=== PATIENT | female | born 1945 | race Hispanic/Latino ===

== ENCOUNTER 2024-06-29 06:15 | Day surgery (SDC) | payer OTHER ==
[2024-06-25 12:07] VITALS: BP 115/63; PULSE 81; RESP 18; TEMP 97.2
[2024-06-25 12:24] LABS: BASOPHILS # (AUTO) 0.04 K/uL (0.00-0.20); BASOPHILS % (AUTO) 0.4 % (0.0-5.0); EOSINOPHILS # (AUTO) 0.02 K/uL (0.00-0.70); EOSINOPHILS % (AUTO) 0.2 % (0.0-8.0); HEMATOCRIT 43.9 % (36-48); IMMATURE GRANULOCYTE ABSOLUTE 0.05 K/uL (0-1); LYMPHOCYTES # (AUTO) 1.4 K/uL (1.0-4.8); LYMPHOCYTES % (AUTO) 13.1 % (21.0-51.0); MEAN CORPUSCULAR HEMOGLOBIN 33.5 pg (27.0-33.0); MEAN CORPUSCULAR HGB CONC 33.5 g/dL (32.0-36.0); MONOCYTES # (AUTO) 0.8 K/uL (0.1-1.0); MONOCYTES % (AUTO) 7.7 % (3.0-13.0); NEUTROPHILS # (AUTO) 8.1 K/uL (1.8-7.7); NEUTROPHILS % (AUTO) 78.1 % (40.0-77.0); PLATELET COUNT (AUTO) 134 K/uL (130-400); RED BLOOD CELL COUNT(AUTO) 4.39 MIL/uL (4.00-5.50); RED CELL DISTRIBUTION WIDTH 12.2 % (11.0-15.5); WHITE BLOOD COUNT (AUTO) 10.4 K/uL (4.8-10.8)
[2024-06-25 12:35] LABS: CREATININE 1.2 mg/dL (0.5-1.0); INR 0.99 (0.85-1.15); POTASSIUM 3.7 mmol/L (3.5-5.1); PROTHROMBIN TIME 11.1 SEC (9.6-11.6)
[2024-06-25 12:36] LABS: PARTIAL THROMBOPLASTIN TIME 25.4 SEC (26.3-35.5)
[2024-06-25 12:43] LABS: B-TYPE NATRIURETIC PEPTIDE 18 pg/mL (0-100)
--- NOTE | 2024-06-25 13:34 | EKG ---
[facility] Test Date: 2024-06-25 Test Time: 12:57:02 Pat Name: Brett MILLARD Department: [facility] Room: Gender: F Digital Marketing Analyst: [id number] : 1945 Requested By: REJI LORA Order Number: [id number] Reading MD: Vinh Paula Measurements Intervals [place] Rate: 75 P: 58 MS: 189 QRS: 32 QRSD: 76 T: 28 QT: 369 QTc: 413 Interpretive Statements Sinus rhythm Compared to ECG 09/03/2022 12:24:34 No significant changes Electronically Signed On 06-25-2024 19:49:08 [employer]PA[employer] by Vinh Paula Please click the below link to view image of tracing.
[~2024-06-29] VITALS: Ht 160 cm; Wt 77.1 kg
[2024-06-29] VITALS (12 sets, daily range): BP systolic 134–173; BP diastolic 63–93; PULSE 59–74; RESP 13–17; TEMP 96.9–97.2
[~2024-06-29 06:15] MED LIST: AEC81 PO; AMOX1TAB15 PO; CHOL100020 PO; CHOL100046 PO; FOLI1 PO; METO-391 PO; PANT40TA54 PO; PREG100C PO; TRAM-543 PO; ZOLP5TAB8 PO
[2024-06-29] MEDS: 0.9%NACL 1000ML 1,000 ML IV SCH (07:20)
[2024-06-29] MEDS ORDERED: LIDOCAINE HCL 400MG/20ML VIAL ONE ×2 (08:29→09:26)
[2024-06-29] MEDS ORDERED: HEParin-NS 1,000 UNIT/500 ML 1,000 ML IV ONE (08:30)
[2024-06-29] MEDS ORDERED: HEParin 10,000 UNIT/10ML (1,000 UNIT/ML) VIAL ONE (08:30)
[2024-06-29] MEDS ORDERED: NITROGLYCERIN 50MG VIAL ONE (08:30)
[2024-06-29] MEDS ORDERED: IODIXANOL 320 MG/ML 100 ML VIAL ONE (08:36)
[2024-06-29] MEDS ORDERED: FENTanyl CITRate PF 50 MCG/1 ML 2ML VIAL ONE (08:58)
[2024-06-29] MEDS ORDERED: MIDAZOLAM HCL 1 MG/ML 2ML VIAL ONE (08:59)
[2024-06-29] MEDS ORDERED: cloPIDOgrel 300MG TAB ONE (09:50)
[2024-06-29] MEDS ORDERED: ASPIRIN 81MG CHEW TAB ONE (09:50)
[2024-06-29] MEDS ORDERED: 0.9%NACL 1000ML 1,000 ML IV SCH (10:00)
[2024-06-29] MEDS ORDERED: acetaMINOPHEN WITH coDEINE 1 TAB TAB PO PRN ×2 (10:00)
[2024-06-29] MEDS ORDERED: DEXTROSE 50%-WATER 50 ML DISP.SYRIN IV PRN (10:00)
[2024-06-29] MEDS ORDERED: GLUCAGON 1MG KIT 1 MG ML IM PRN (10:00)
--- NOTE | 2024-06-29 10:03 | PRN ---
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 PROCEDURE: [] Conscious sedation Bilateral common femoral vein sheath placements nine [place] Bilateral common femoral venogram Intravascular ultrasound of IVC, bilateral common iliac external iliac and common femoral veins pre and post stent placement Primary stent placement to left common iliac and external iliac vein with the use of a 16 mm x 120 mm Medtronic venous self expanding stent Primary stent placement to right common iliac and external iliac vein images I 14 mm x 100 mm Medtronic venous self expanding stent DATE OF PROCEDURE: June 29, 2024 SERVER CASHIER: [email or web address] PROCEDURE NOTE: [] Patient was electively brought to catheterization suite and prepped and draped in sterile fashion. An IV was started if not already in place and both groins were exposed for venous access. 2% lidocaine was used for local anesthesia then a micropuncture kit was used to gain venous access on the left and once free flow blood was seen modified Seldinger technique was utilized to place a nine [place] sheath into the left common femoral vein. Next a left common femoral venogram was performed followed by placement of a Glidewire into the IVC and an IVUS catheter used to interrogate the IVC, left common iliac external iliac and common femoral vein with findings as described below. Next an Omni flush catheter was then used to direct the Glidewire to the right common femoral vein under fluoroscopic guidance. Next the Omni flush catheter was advanced wire was removed and a right common femoral venogram was performed. Next wire was placed back into the IVC rosalinda back through the Omni flush catheter parked in the right common femoral vein Omni flush catheter was removed and then IVUS catheter was used to interrogate the right common femoral vein external iliac ve in and common iliac vein. Findings are as described below. After measurements were obtained and patient was noted to have critical compression of right external iliac vein it was felt access should be obtained from the right common femoral vein and this was done with a micropuncture kit and then a nine [place] sheath was placed in the right common femoral vein. Next venogram was repeated IVUS was used to place landmarks for stent placement on each leg and then a 16 mm x 120 mm Medtronic venous self expanding stent was then used to deploy on the left common iliac vein and a 14 mm x 100 mm Medtronic venous self expanding stent was then deployed to the right common iliac and external iliac vein. Follow up IVUS and contrast injection revealed excellent stent apposition with no evidence of dissection or perforation. At end of case VASCADE closure systems were used for venous access sites and no complications occurred. FINDINGS: [] Critical compression left common iliac vein at 65% and left external iliac vein at 50% Critical compression of right external iliac vein at 75% IMPRESSION: [] Critical compression left common iliac and external iliac vein and right external iliac vein PLAN: [] Successful primary stent placed in the left common iliac vein with the use of a 16 mm x 120 mm Medtronic venous self expanding stent Successful primary stent placement to right common iliac and external iliac vein with use of a 14 mm x 100 mm Medtronic venous of expanding stent MARTIN LORA MD Jun 29, 2024 10:03
[2024-06-29] MEDS: PANTOPrazole 40 MG TAB DR PO ONE (10:37)
--- NOTE | 2024-06-29 14:10 | NUR ---
DRESSING: BILATERAL GROIN DRESSING WITH SMALL AMOUNT OF DARK REDDISH DRAINAGE AND CHANGED USING ASEPTIC TECHNIQUE. NO ACTIVE BLEEDING PRESENT. BILATERAL GROIN WITH NO REDNESS/SWELLING NOTED TO SURROUNDING AREA.
== END 2024-06-29 16:00 | disposition home or self-care (01) ==
LOC: DAH 06:15
PROVIDERS: ATTEND Internal Medicine Cardiovascular Disease
DX: I87.1 Compression of vein (principal); I87.2 Venous insufficiency (chronic) (peripheral); I11.0 Hypertensive heart disease with heart failure; I50.30 Unspecified diastolic (congestive) heart failure; E78.5 Hyperlipidemia, unspecified; G62.9 Polyneuropathy, unspecified; M79.7 Fibromyalgia; K21.9 Gastro-esophageal reflux disease without esophagitis; F41.9 Anxiety disorder, unspecified; E66.9 Obesity, unspecified; R60.0 Localized edema; Z79.899 Other long term (current) drug therapy; Z79.82 Long term (current) use of aspirin; Z79.01 Long term (current) use of anticoagulants; Z68.29 Body mass index [BMI] 29.0-29.9, adult
CPT/HCPCS: 80048; 83880; 85025; 85610; 85730; 36415; 93005; 37238; 75822; 37239; 36012; 36215; 37252; 37253 ×5; Q9965 ×2; C1876 ×2; C1769; C1894 ×3; C1760 ×2; C1753; J3010; J3490 ×3; J7030; J1644 ×2; J2250; Q9967; A4215; A4222; A4221; A4663; A4216; A4606; A4520; A4223 ×3; 96360; 96361; 99156; 99157